=== PATIENT | female | born 1995 ===

== ENCOUNTER 2021-04-02 15:59 | Emergency (ER) | payer SELFPAY ==
[2021-04-02 16:07] VITALS: BP 120/71
--- NOTE | 2021-04-02 16:49 | XRay Report ---
CHEST 2 VIEWS INDICATION / CLINICAL INFORMATION: chest pain. COMPARISON: None available. FINDINGS: SUPPORT DEVICES: None. HEART / MEDIASTINUM: No significant abnormality. LUNGS / PLEURA: No significant pulmonary or pleural abnormality. No pneumothorax. ADDITIONAL FINDINGS: No significant additional findings. IMPRESSION: 1. No acute findings. Signer Name: Eugene Xie MD Signed: 04/02/2021 4:45 PM Workstation Name: [id number]
--- NOTE | 2021-04-02 21:12 | Emergency Department Report ---
ED General Adult HPI - General Chief complaint: Chest Pain Stated complaint: CHEST PAIN Time Seen by Provider: 04/02/21 20:41 Source: patient Mode of arrival: Ambulatory Limitations: No Limitations - Related Data Previous Rx's Medication Instructions Recorded Last Taken Type Ketorolac [Toradol] 10 mg PO Q6H PRN #10 tablet 04/02/21 Unknown Rx Allergies Allergy/AdvReac Type Severity Reaction Status Date / Time No Known Allergies Allergy Unverified 04/02/21 16:04 ED Review of Systems ROS: Stated complaint: CHEST PAIN Other details as noted in HPI ED Past Medical Hx - Past Medical History Previous Medical History?: No - Surgical History Past Surgical History?: No - Medications Home Medications: Home Medications Medication Instructions Recorded Confirmed Last Taken Type Ketorolac [Toradol] 10 mg PO Q6H PRN #10 tablet 04/02/21 Unknown Rx ED Physical Exam - General Limitations: No Limitations ED Course Vital Signs 04/02/21 16:06 Temperature 98 F Pulse Rate 82 Respiratory 16 Rate Blood Pressure 120/71 [Right] O2 Sat by Pulse 100 Oximetry ED Medical Decision Making - EKG Data EKG shows normal: sinus rhythm Rate: normal - EKG Data Interpretation: normal EKG - Radiology Data Radiology results: report reviewed [facility] [address] [place] [address] XRay Report Signed Patient: KOBE RILEY MR#: [id number] : 1995 Acct:[id number] Age/Sex: 26 / F ADM Date: 04/02/21 Loc: ED Attending Dr: Ordering Physician: ED MD MK Date of Service: 04/02/21 Procedure(s): XR chest routine 2V Accession Number(s): [id number] cc: ED MD MK Fluoro Time In Minutes: CHEST 2 VIEWS INDICATION / CLINICAL INFORMATION: chest pain. COMPARISON: None available. FINDINGS: SUPPORT DEVICES: None. HEART / MEDIASTINUM: No significant abnormality. LUNGS / PLEURA: No significant pulmonary or pleural abnormality. No pneumothorax. ADDITIONAL FINDINGS: No significant additional findings. IMPRESSION: 1. No acute findings. Signer Name: Eugene Sheikh MD Signed: 04/02/2021 4:45 PM Workstation Name: [id number] Transcribed By: SB Dictated By: EUGENE SHEIKH MD Electronically Authenticated By: EUGENE SHEIKH MD Signed Date/Time: 04/02/211644 DD/ 44 TD/TT: Print Cancel - Medical Decision Making This patient presents with chest pain that is very unlikely angina or acute coronary syndrome. The emergency department evaluation has not identified any cause for suspicion that this chest pain has a cardiac etiology. Based on their history, EKG (which showed no evidence of ischemia or infarction) and imaging, in addition to the patient's physical exam, I see no evidence at this time for a malignant etiology for the patient's chest pain. There is no acute evidence for pulmonary embolus, acute myocardial infarction, pneumothorax, Boerhaeve syndrome, cardiac tamponade, thoracic artery dissection, or any other emergent cardiac, pulmonary or aortic pathology. Given the low pre-test probability for cardiac etiology of chest pain and the absence of any sign of ischemia or infarction, discharge for outpatient follow-up and further evaluation is reasonable. I have explained to the patient that even though a cardiac problem is very unlikely, follow-up and further testing is required to reduce further the already small uncertainty that exists. Other life-threatening diagnoses have been considered. The patient understands the need to return immediately if their symptoms worsen or they develop any new symptoms, and not to engage in any significant exertional activity until follow-up is obtained. Critical care attestation.: If time is entered above; I have spent that time in minutes in the direct care of this critically ill patient, excluding procedure time. ED Disposition Clinical Impression: Chest pain Disposition: DC-01 TO HOME OR SELFCARE Is pt being admited?: No Does the pt Need Aspirin: No Condition: Stable Instructions: Nonspecific Chest Pain, Adult Additional Instructions: You are seen in emergency department for chest pain during your evaluation today no urgent or emergent cause was discovered for your chest pain but is still recommended you follow-up with primary care/cardiology for further evaluation and treatment options. We will change my department should you feel any worsening chest pain, shortness of breath, palpitations, fevers, chills, sweats. Prescriptions: Ketorolac [Toradol] 10 mg PO Q6H PRN #10 tablet PRN Reason: Pain Referrals: ALAINA CESAR MD [Staff Physician] - 3-5 Days
--- NOTE | 2021-04-03 10:21 | Electrocardiograph Report ---
[facility] Test Date: 2021-04-02 Test Time: 16:51:11 Pat Name: KOBE RILEY Department: Room: Gender: F Scientific Associate: SANTO : 1995 Requested By: BENJA MURPHY Order Number: [id number] Reading MD: Steve Limon Measurements Intervals [place] Rate: 82 P: 72 [place]: 154 QRS: 28 QRSD: 84 T: 20 QT: 379 QTc: 442 Interpretive Statements Sinus rhythm Low voltage, precordial leads No previous ECG available for comparison Electronically Signed On 04-03-2021 10:21:25 EDT by Steve Limon
== END 2021-04-02 21:40 | disposition home or self-care (01) ==
LOC: EDBD → ED 15:59
DX: R07.89 Other chest pain (principal)
CPT/HCPCS: 71046; 93005; 99283